=== PATIENT | female | born 1965 | race Caucasian/White ===

== ENCOUNTER 2023-01-17 10:47 | Emergency (ER) | payer OTHER | END 2023-01-17 12:09 | disposition home or self-care (01) | LOC: NAV ERS 10:47 | DX: S23.41XA Sprain of ribs, initial encounter (principal); I10 Essential (primary) hypertension; E78.5 Hyperlipidemia, unspecified; W01.0XXA Fall on same level from slipping, tripping and stumbling without subsequent striking against object, initial encounter; Y93.89 Activity, other specified; Y92.481 Parking lot as the place of occurrence of the external cause ==